=== PATIENT | female | born 1945 | race Caucasian/White ===

== ENCOUNTER 2024-05-18 20:11 | Inpatient (IN) | payer MEDICARE ==
[~2024-05-18] VITALS: Ht 160 cm; Wt 72.6 kg
[2024-05-18 20:30] VITALS: PULSE 92; RESP 20; TEMP 98.6
[2024-05-18 21:08] LABS: BASOPHILS # (AUTO) 0.1 (0.0-0.1); BASOPHILS % 0.9 % (0.0-1.0); EOSINOPHILS # (AUTO) 0.2 (0.0-0.4); HEMATOCRIT 37.9 % (34.2-44.1); LYMPHOCYTES # (AUTO) 1.1 (1.0-3.2); LYMPHOCYTES % 17.3 % (18.0-39.1); MEAN CORPUSCULAR HEMOGLOBIN 29.9 pg (28-32); MEAN CORPUSCULAR HGB CONC 31.7 g/dL (31-35); MEAN CORPUSCULAR VOLUME 94.3 fL (81-99); MONOCYTES # (AUTO) 0.5 (0.2-0.8); MONOCYTES % 7.8 % (4.4-11.3); NEUTROPHILS # (AUTO) 4.6 (2.1-6.9); NEUTROPHILS % 70.7 % (38.7-80.0); PLATELET COUNT 190 x10e3/uL (140-360); RED BLOOD COUNT 4.02 x10e6/uL (3.6-5.1); RED CELL DISTRIBUTION WIDTH 15.2 % (11.7-14.4); WHITE BLOOD COUNT 6.43 x10e3/uL (4.8-10.8)
[2024-05-18 21:28] LABS: ALBUMIN 2.9 g/dL (3.5-5.0); ALBUMIN/GLOBULIN RATIO 0.7 (0.8-2.0); CALCIUM 8.8 mg/dL (8.4-10.2); CREATININE, SERUM 2.16 mg/dL (0.57-1.11); TOTAL PROTEIN 7.1 g/dL (6.5-8.1)
[2024-05-18] MEDS: ONDANSETRON HCL INJ 2MG/ML 2ML 2 MG/ML VIAL IV PRN (22:50)
[2024-05-18] MEDS: Morphine 4mg INJECTION 4 MG/ML INJ IV PRN (22:51)
[2024-05-18 23:37] VITALS: BP 157/74; PULSE 88; RESP 22; TEMP 97.7; O2SAT 100
[2024-05-19] VITALS (9 sets, daily range): BP systolic 124–137; BP diastolic 74–88; PULSE 77–102; RESP 16–20; TEMP 97.4–98.6; O2SAT 95–100
[2024-05-19] MEDS ORDERED: ASPIRIN CHEW81 MG PO (00:14)
[2024-05-19] MEDS ORDERED: ALBUTEROL1.25 MG/3 NEB (00:14)
[2024-05-19] MEDS ORDERED: FUROSEMIDE40 MG PO (00:14)
[2024-05-19] MEDS ORDERED: ISOSORBIDE MONO30 MG PO (00:14)
[2024-05-19] MEDS ORDERED: ATORVASTATIN CA20 MG PO (00:14)
[2024-05-19 05:36] LABS: BASOPHILS # (AUTO) 0.1 (0.0-0.1); EOSINOPHILS # (AUTO) 0.2 (0.0-0.4); EOSINOPHILS % 2.1 % (0.0-6.0); HEMATOCRIT 39.9 % (34.2-44.1); HEMOGLOBIN 12.2 g/dL (12.0-16.0); LYMPHOCYTES # (AUTO) 1.5 (1.0-3.2); LYMPHOCYTES % 21.9 % (18.0-39.1); MEAN CORPUSCULAR HGB CONC 30.6 g/dL (31-35); MONOCYTES # (AUTO) 0.7 (0.2-0.8); MONOCYTES % 10.1 % (4.4-11.3); NEUTROPHILS # (AUTO) 4.5 (2.1-6.9); NEUTROPHILS % 64.6 % (38.7-80.0); PLATELET COUNT 167 x10e3/uL (140-360); RED BLOOD COUNT 4.07 x10e6/uL (3.6-5.1); RED CELL DISTRIBUTION WIDTH 15.4 % (11.7-14.4); WHITE BLOOD COUNT 7.03 x10e3/uL (4.8-10.8)
[2024-05-19 06:15] LABS: ALBUMIN 2.8 g/dL (3.5-5.0); ALBUMIN/GLOBULIN RATIO 0.7 (0.8-2.0); CALCIUM 8.7 mg/dL (8.4-10.2); CREATININE, SERUM 2.1 mg/dL (0.57-1.11); TOTAL PROTEIN 7.1 g/dL (6.5-8.1)
[2024-05-19] MEDS ORDERED: DEXTROSE 50% SYRINGE 50 ML IV PRN (09:00)
[2024-05-19] MEDS: ISOSORBIDE MONONITRATE 30 MG TAB CR PO SCH (10:18)
[2024-05-19] MEDS: FUROSEMIDE INJ 10 MG/ML 4 ML VIAL IV SCH (10:18)
[2024-05-19] MEDS: FLUCONAZOLE 100 MG TAB PO ONE (10:19)
[2024-05-19] MEDS: ATORVASTATIN 20 MG TAB PO SCH (10:20)
[2024-05-19] MEDS: POTASSIUM CHLORIDE 10MEQ EA PO SCH (10:20)
[2024-05-19] MEDS: ASPIRIN 81 MG CHEW TAB PO SCH (10:21)
[2024-05-19] MEDS: POTASSIUM CHLORIDE 10MEQ EA PO ONE (10:26)
[2024-05-19] MEDS: INSULIN LISPRO 100 UNIT/1 ML 3ML VIAL SQ SCH (11:32)
[2024-05-19] MEDS: NYSTATIN/TRIAMCINOLONE 30 GM CR TOP SCH (11:33)
[2024-05-20] VITALS (8 sets, daily range): BP systolic 122–136; BP diastolic 64–89; PULSE 76–101; RESP 18–20; TEMP 97.5–99.3; O2SAT 96–100
[2024-05-20] MEDS: ACETAMINOPHEN 325 MG TAB PO PRN (00:39)
[2024-05-20 05:40] LABS: BASOPHILS # (AUTO) 0.1 (0.0-0.1); BASOPHILS % 1.5 % (0.0-1.0); EOSINOPHILS # (AUTO) 0.2 (0.0-0.4); EOSINOPHILS % 3.1 % (0.0-6.0); HEMATOCRIT 39.9 % (34.2-44.1); HEMOGLOBIN 12.3 g/dL (12.0-16.0); LYMPHOCYTES # (AUTO) 1.1 (1.0-3.2); LYMPHOCYTES % 20.4 % (18.0-39.1); MEAN CORPUSCULAR HEMOGLOBIN 29.9 pg (28-32); MEAN CORPUSCULAR HGB CONC 30.8 g/dL (31-35); MEAN CORPUSCULAR VOLUME 96.8 fL (81-99); MONOCYTES # (AUTO) 0.5 (0.2-0.8); MONOCYTES % 9.1 % (4.4-11.3); NEUTROPHILS # (AUTO) 3.4 (2.1-6.9); NEUTROPHILS % 65.5 % (38.7-80.0); PLATELET COUNT 166 x10e3/uL (140-360); RED BLOOD COUNT 4.12 x10e6/uL (3.6-5.1); RED CELL DISTRIBUTION WIDTH 15.5 % (11.7-14.4); WHITE BLOOD COUNT 5.19 x10e3/uL (4.8-10.8)
[2024-05-20 06:15] LABS: CALCIUM 8.9 mg/dL (8.4-10.2); CREATININE, SERUM 2.1 mg/dL (0.57-1.11)
[2024-05-20 08:37] LABS: PHOSPHORUS 4.6 MG/DL (2.3-4.7)
[2024-05-20] MEDS: HYDROCODONE/APAP 10MG-325MG TAB PO PRN (09:00)
[2024-05-20] MEDS ORDERED: FLUCONAZOLE 100 MG TAB PO SCH (09:00)
[2024-05-20 09:24] LABS: THYROID STIMULATING HORMONE 1.871 uIU/mL (0.350-4.940)
[2024-05-20] MEDS ORDERED: ONDANSETRON HCL 4 MG ORAL DISINTEGRATING TAB PO PRN (13:30)
[2024-05-20 14:58] LABS: BILIRUBIN,URINE NEGATIVE (NEGATIVE); CLARITY,URINE HAZY (CLEAR); COLOR,URINE YELLOW (YELLOW); GLUCOSE, URINE NEGATIVE (NEGATIVE); KETONES,URINE NEGATIVE (NEGATIVE); LEUKOCYTE ESTERASE ,URINE MODERATE (NEGATIVE); NITRITE,URINE NEGATIVE (NEGATIVE); PH,URINE 5.5 (5 - 7); PROTEIN,URINE DIPSTICK 2+ (NEGATIVE); URINE UROBILINOGEN 0.2 mg/dL (0.2 - 1)
[2024-05-20 15:12] LABS: AMORPHOUS SEDIMENT,URINE MODERATE (FEW); BACTERIA,URINE MODERATE /HPF; RENAL EPITHELIAL CELLS,URINE MODERATE
[2024-05-20 16:11] LABS: CREATININE,URINE RANDOM 61.98 mg/dL (47-110)
[2024-05-20 16:14] LABS: TOTAL PROTEIN, URINE 205.5 mg/dL (1-14)
[2024-05-20] MEDS: DOXYCYCLINE HYCLATE TABLET 100 MG TAB PO SCH (17:56)
[2024-05-21 04:00] VITALS: BP 126/78; PULSE 101; RESP 18; TEMP 97.4; O2SAT 97
[2024-05-21 07:21] LABS: ANION GAP 20.3 mmol/L (8-16); CALCIUM 8.7 mg/dL (8.4-10.2); CREATININE, SERUM 2.25 mg/dL (0.57-1.11); POTASSIUM 4.3 mmol/L (3.5-5.1)
[2024-05-21 08:00] VITALS: BP 128/88; PULSE 103; RESP 22; TEMP 97.6; O2SAT 96
[2024-05-21 09:00] VITALS: BP 128/88; PULSE 103; RESP 22; TEMP 97.6; O2SAT 96
[2024-05-21] MEDS: SODIUM BICARBONATE 650 MG TAB PO SCH (09:01)
[2024-05-21] MEDS ORDERED: Vancomycin IV 1 GM VIAL ONE (11:52)
[2024-05-21] MEDS: Vancomycin IV 1 GM in SODIUM CHLORIDE 0.9% 250ML 250 ML IV ONE (11:52)
[2024-05-21 12:16] VITALS: BP 144/84; PULSE 84; RESP 22; O2SAT 97
[2024-05-21 16:00] VITALS: BP 133/76; PULSE 84; RESP 19; TEMP 97.6; O2SAT 98
[2024-05-21 20:00] VITALS: BP 142/81; PULSE 94; RESP 18; TEMP 97.5; O2SAT 98
[2024-05-21] MEDS: ALPRAZOLAM 0.25 MG TAB PO PRN (20:36)
[2024-05-22] VITALS (7 sets, daily range): BP systolic 124–143; BP diastolic 80–85; PULSE 79–85; RESP 18–20; TEMP 97.3–97.9; O2SAT 97–100
[2024-05-22 07:39] LABS: ANION GAP 20.3 mmol/L (8-16); CALCIUM 8.1 mg/dL (8.4-10.2); POTASSIUM 4.3 mmol/L (3.5-5.1)
[2024-05-22 08:07] LABS: CREATININE, SERUM 2.29 mg/dL (0.57-1.11)
[2024-05-22] MEDS: SODIUM CHLORIDE 0.9% 250ML 250 ML ONE (08:17)
[2024-05-22] MEDS: Vancomycin IV 1 GM in SODIUM CHLORIDE 0.9% 250ML 250 ML IV ONE (12:24)
[2024-05-22] MEDS: SODIUM BICARBONATE 650 MG TAB PO SCH (14:13)
[2024-05-23 04:00] VITALS: BP 130/99; PULSE 89; RESP 18; TEMP 97.7; O2SAT 100
[2024-05-23 06:12] LABS: CALCIUM 8.6 mg/dL (8.4-10.2); CREATININE, SERUM 2.11 mg/dL (0.57-1.11)
[2024-05-23 08:00] VITALS: BP 130/99; PULSE 89; RESP 18; TEMP 97.7; O2SAT 100
[2024-05-23 09:15] VITALS: BP 131/66; PULSE 86; RESP 19; TEMP 97.3; O2SAT 97
[2024-05-23 11:48] VITALS: BP 133/90; PULSE 88; RESP 19; TEMP 97.7; O2SAT 95
[2024-05-23 17:11] VITALS: BP 127/76; PULSE 78; RESP 19; TEMP 97; O2SAT 97
[2024-05-23 20:00] VITALS: BP 134/75; PULSE 90; RESP 20; TEMP 97.8; O2SAT 98
[2024-05-24] VITALS: BP 127/72; PULSE 92; RESP 18; TEMP 98.4; O2SAT 98
[2024-05-24 04:00] VITALS: BP 117/74; PULSE 89; RESP 18; TEMP 98; O2SAT 97
[2024-05-24 05:31] LABS: ANION GAP 16.3 mmol/L (8-16); CALCIUM 8.5 mg/dL (8.4-10.2); CREATININE, SERUM 2.17 mg/dL (0.57-1.11); POTASSIUM 4.3 mmol/L (3.5-5.1)
[2024-05-24 08:00] VITALS: BP 136/73; PULSE 93; RESP 21; TEMP 97.9; O2SAT 98
[2024-05-24 08:20] VITALS: BP 136/73; PULSE 93; RESP 21; TEMP 97.9; O2SAT 98
[2024-05-24] MEDS ORDERED: NYSTATIN-TRIAMC15 GM TOP (10:11)
[2024-05-24] MEDS ORDERED: SODIUM BICARBO650 MG PO (10:11)
[2024-05-24] MEDS ORDERED: DOXYCYCLINE HY100 MG PO (10:13)
[2024-05-24 10:42] VITALS: BP 136/73; PULSE 93; RESP 21; TEMP 97.9; O2SAT 98
[2024-05-24 12:08] VITALS: BP 140/71; PULSE 92; RESP 20; TEMP 97.5; O2SAT 99
== END 2024-05-24 13:21 | disposition home or self-care (01) | DRG 637 ==
LOC: ER 20:28 → ERHOLD 22:08 → MED/SURG2 05-19 00:01
PROVIDERS: ADMIT Internal Medicine; ATTEND Internal Medicine
DX: E11.621 Type 2 diabetes mellitus with foot ulcer (principal); I50.23 Acute on chronic systolic (congestive) heart failure; I13.0 Hypertensive heart and chronic kidney disease with heart failure and stage 1 through stage 4 chronic kidney disease, or unspecified chronic kidney disease; E11.42 Type 2 diabetes mellitus with diabetic polyneuropathy; E11.22 Type 2 diabetes mellitus with diabetic chronic kidney disease; N18.4 Chronic kidney disease, stage 4 (severe); B95.62 Methicillin resistant Staphylococcus aureus infection as the cause of diseases classified elsewhere; E11.51 Type 2 diabetes mellitus with diabetic peripheral angiopathy without gangrene; B37.2 Candidiasis of skin and nail; Z66 Do not resuscitate; E78.5 Hyperlipidemia, unspecified; I25.10 Atherosclerotic heart disease of native coronary artery without angina pectoris; I83.93 Asymptomatic varicose veins of bilateral lower extremities; Z11.52 Encounter for screening for COVID-19; Z79.82 Long term (current) use of aspirin; Z79.4 Long term (current) use of insulin
CPT/HCPCS: 36415; 71045; 76770; 80048; 80053; 80061; 80202; 81001; 82570; 82746; 82948; 83036; 83735; 83880; 84100; 84156; 84443; 85025; 87071; 87186; 87205; 93926; 96372; 99252; 99284; J0696; J1940; J2270; J2405; J2543; J7050; U0002

== ENCOUNTER 2024-05-25 21:15 | Inpatient (IN) | payer MEDICARE ==
[~2024-05-25] VITALS: Ht 160 cm; Wt 72.6 kg
[~2024-05-25 21:15] MED LIST: ALBUTEROL1.25 MG/3 NEB; ASPIRIN CHEW81 MG PO; ATORVASTATIN CA20 MG PO; DOXYCYCLINE HY100 MG PO; FUROSEMIDE40 MG PO; ISOSORBIDE MONO30 MG PO; NYSTATIN-TRIAMC15 GM TOP; SODIUM BICARBO650 MG PO
[2024-05-25 21:35] VITALS: TEMP 97.8
[2024-05-25 22:24] LABS: BASOPHILS # (AUTO) 0.1 (0.0-0.1); BASOPHILS % 1.2 % (0.0-1.0); EOSINOPHILS # (AUTO) 0.1 (0.0-0.4); EOSINOPHILS % 1.4 % (0.0-6.0); HEMATOCRIT 38.7 % (34.2-44.1); HEMOGLOBIN 12.1 g/dL (12.0-16.0); LYMPHOCYTES # (AUTO) 1.3 (1.0-3.2); LYMPHOCYTES % 20.2 % (18.0-39.1); MEAN CORPUSCULAR HEMOGLOBIN 29.6 pg (28-32); MEAN CORPUSCULAR HGB CONC 31.3 g/dL (31-35); MEAN CORPUSCULAR VOLUME 94.6 fL (81-99); MONOCYTES # (AUTO) 0.5 (0.2-0.8); MONOCYTES % 7.2 % (4.4-11.3); NEUTROPHILS # (AUTO) 4.6 (2.1-6.9); NEUTROPHILS % 69.8 % (38.7-80.0); PLATELET COUNT 183 x10e3/uL (140-360); RED BLOOD COUNT 4.09 x10e6/uL (3.6-5.1); RED CELL DISTRIBUTION WIDTH 16.4 % (11.7-14.4); WHITE BLOOD COUNT 6.54 x10e3/uL (4.8-10.8)
[2024-05-25 22:44] LABS: ALBUMIN 2.7 g/dL (3.5-5.0); ALBUMIN/GLOBULIN RATIO 0.6 (0.8-2.0); ANION GAP 18.5 mmol/L (8-16); BILIRUBIN,TOTAL 0.7 mg/dL (0.2-1.2); CALCIUM 8.6 mg/dL (8.4-10.2); CREATININE, SERUM 2.22 mg/dL (0.57-1.11); POTASSIUM 4.5 mmol/L (3.5-5.1); TOTAL PROTEIN 7.1 g/dL (6.5-8.1)
[2024-05-25] MEDS: METHYLPREDNISOLONE SOD SUCC 125 MG/2ML VIAL IV ONE (23:10)
[2024-05-25] MEDS: FAMOTIDINE 20 MG/2 ML VIAL IV STA (23:11)
[2024-05-25] MEDS: DIPHENHYDRAMINE HCL INJ 50 MG/ML VIAL IV ONE (23:11)
[2024-05-26] VITALS (9 sets, daily range): BP systolic 123–132; BP diastolic 75–97; PULSE 84–101; RESP 18–24; TEMP 97.5–98; O2SAT 95–99
[2024-05-26] MEDS ORDERED: DEXTROSE 50% SYRINGE 50 ML IV PRN (00:45)
[2024-05-26] MEDS: FUROSEMIDE INJ 10 MG/ML 4 ML VIAL IV ONE (01:01)
[2024-05-26] MEDS: LORAZEPAM INJ 2 MG/ML VIAL IV ONE ×2 (02:07→02:37)
[2024-05-26] MEDS ORDERED: LORAZEPAM INJ 2 MG/ML VIAL ONE (02:08)
[2024-05-26] MEDS: FUROSEMIDE INJ 10 MG/ML 4 ML VIAL IV SCH (05:31)
[2024-05-26] MEDS: METHYLPREDNISOLONE SOD SUCC 40 MG/ML VIAL 1ML IV SCH ×2 (05:31→13:15)
[2024-05-26 05:59] LABS: TROPONIN I 0.024 ng/mL (0-0.300)
[2024-05-26] MEDS: INSULIN REGULAR, HUMAN 100 UNIT/1 ML SQ SCH (08:02)
[2024-05-26] MEDS ORDERED: ONDANSETRON HCL INJ 2MG/ML 2ML 2 MG/ML VIAL IV PRN (08:45)
[2024-05-26] MEDS ORDERED: ACETAMINOPHEN 325 MG TAB PO PRN (08:45)
[2024-05-26] MEDS ORDERED: FAMOTIDINE 20 MG/2 ML VIAL IV ONE (09:47)
[2024-05-26] MEDS ORDERED: PIPERACILLIN/TAZOBACTAM SOD 2.25 GM VIAL ONE (09:47)
[2024-05-26] MEDS ORDERED: SODIUM BICARBONATE 650 MG TAB ONE (09:49)
[2024-05-26] MEDS: NYSTATIN/TRIAMCINOLONE 30 GM CR TOP SCH (09:54)
[2024-05-26] MEDS: ISOSORBIDE MONONITRATE 30 MG TAB CR PO SCH (09:54)
[2024-05-26] MEDS: FAMOTIDINE 20 MG/2 ML VIAL IV SCH (09:55)
[2024-05-26] MEDS: SODIUM BICARBONATE 650 MG TAB PO SCH (09:56)
[2024-05-26 14:24] LABS: TROPONIN I 0.019 ng/mL (0-0.300)
[2024-05-26] MEDS: HEPARIN SOD (PORCINE) 5,000 UNIT/ML VIAL SC SCH (21:46)
[2024-05-26] MEDS: DIPHENHYDRAMINE HCL INJ 50 MG/ML VIAL IV PRN (23:33)
[2024-05-27] VITALS (7 sets, daily range): BP systolic 109–139; BP diastolic 67–84; PULSE 82–86; RESP 18–20; TEMP 97.5–99.5; O2SAT 95–98
[2024-05-27 06:30] LABS: HEMATOCRIT 39.7 % (34.2-44.1); HEMOGLOBIN 12.4 g/dL (12.0-16.0); LYMPHOCYTES # (AUTO) 0.3 (1.0-3.2); LYMPHOCYTES % 3.4 % (18.0-39.1); MEAN CORPUSCULAR HEMOGLOBIN 29.6 pg (28-32); MEAN CORPUSCULAR HGB CONC 31.2 g/dL (31-35); MEAN CORPUSCULAR VOLUME 94.7 fL (81-99); MONOCYTES # (AUTO) 0.2 (0.2-0.8); MONOCYTES % 2.1 % (4.4-11.3); NEUTROPHILS % 94.3 % (38.7-80.0); PLATELET COUNT 176 x10e3/uL (140-360); RED BLOOD COUNT 4.19 x10e6/uL (3.6-5.1); RED CELL DISTRIBUTION WIDTH 16.6 % (11.7-14.4); WHITE BLOOD COUNT 8.52 x10e3/uL (4.8-10.8)
[2024-05-27 06:45] LABS: ALBUMIN 2.7 g/dL (3.5-5.0); ALBUMIN/GLOBULIN RATIO 0.6 (0.8-2.0); ANION GAP 19.8 mmol/L (8-16); BILIRUBIN,TOTAL 0.9 mg/dL (0.2-1.2); CALCIUM 8.7 mg/dL (8.4-10.2); CREATININE, SERUM 2.24 mg/dL (0.57-1.11); POTASSIUM 3.8 mmol/L (3.5-5.1); TOTAL PROTEIN 7.1 g/dL (6.5-8.1)
[2024-05-27 07:31] LABS: TROPONIN I 0.032 ng/mL (0-0.300)
[2024-05-27] MEDS ORDERED: DEXTROSE 50% SYRINGE 50 ML IV PRN (09:30)
[2024-05-27] MEDS: INSULIN LISPRO 100 UNIT/1 ML 3ML VIAL SQ SCH (11:30)
[2024-05-27] MEDS ORDERED: NYSTATIN 15 GM POWDER UD BTL TOP SCH (17:00)
[2024-05-27] MEDS: SACUBITRIL/VALSARTAN 24MG/26MG 1 EA TAB PO SCH (17:36)
[2024-05-27] MEDS: CARVEDILOL 3.125 MG TAB PO SCH (17:37)
[2024-05-27] MEDS: METHYLPREDNISOLONE SOD SUCC 40 MG/ML VIAL 1ML IV SCH (23:48)
[2024-05-28] VITALS (10 sets, daily range): BP systolic 113–136; BP diastolic 67–78; PULSE 69–84; RESP 16–20; TEMP 97.6–98.9; O2SAT 95–100
[2024-05-28] MEDS: FAMOTIDINE 20 MG TAB PO SCH (11:08)
[2024-05-28] MEDS: BALSAM PERU/CASTOR OIL 60 GM OINT...G. TP SCH (11:52)
[2024-05-29] VITALS (8 sets, daily range): BP systolic 124–140; BP diastolic 72–101; PULSE 72–82; RESP 18–20; TEMP 97.6–99.1; O2SAT 96–100
[2024-05-29 06:21] LABS: ANION GAP 20.3 mmol/L (8-16); CALCIUM 8.1 mg/dL (8.4-10.2); CREATININE, SERUM 2.63 mg/dL (0.57-1.11)
[2024-05-29 06:24] LABS: POTASSIUM 3.3 mmol/L (3.5-5.1)
[2024-05-29] MEDS ORDERED: POTASSIUM CHLORIDE 20 MEQ TAB CR PO ONE (16:30)
[2024-05-29] MEDS: PREDNISONE 10 MG TAB PO SCH (17:52)
[2024-05-30] VITALS: BP 126/86; PULSE 70; RESP 18; TEMP 98.3; O2SAT 98
[2024-05-30 04:00] VITALS: BP 129/62; PULSE 82; RESP 18; TEMP 98.2; O2SAT 99
[2024-05-30 08:35] VITALS: PULSE 81; RESP 18; O2SAT 96
[2024-05-30 10:46] VITALS: BP 116/80; PULSE 79; RESP 16; TEMP 98.3; O2SAT 99
[2024-05-30 10:56] VITALS: BP 116/80; PULSE 79
[2024-05-30] MEDS: INSULIN GLARGINE 100 UNITS/ML VIAL SQ ONE (11:03)
[2024-05-30] MEDS: FUROSEMIDE INJ 10 MG/ML 4 ML VIAL IV SCH (11:06)
[2024-05-30] MEDS ORDERED: KEFLEX125 MG/5 M PO (14:20)
[2024-05-30] MEDS ORDERED: DIFLUCAN100 MG PO (14:22)
[2024-05-30] MEDS ORDERED: COREG6.25 MG PO (14:23)
[2024-05-30] MEDS ORDERED: ONDANSETRON ODT4 MG PO (14:25)
[2024-05-30] MEDS ORDERED: GLIPIZIDE5 MG PO (14:26)
[2024-05-30] MEDS ORDERED: LYRICA25 MG PO (14:27)
[2024-05-30] MEDS ORDERED: INSULIN GLARGINE 100 UNITS/ML VIAL SQ SCH (21:00)
== END 2024-05-30 17:23 | disposition hospice, home (50) | DRG 299 ==
LOC: ER 21:38 → ERHOLD 05-26 00:35 → MED/SURG2 05-26 14:05
PROVIDERS: ADMIT Internal Medicine; ATTEND Internal Medicine
DX: E11.52 Type 2 diabetes mellitus with diabetic peripheral angiopathy with gangrene (principal); G92.8 Other toxic encephalopathy; I50.23 Acute on chronic systolic (congestive) heart failure; I13.0 Hypertensive heart and chronic kidney disease with heart failure and stage 1 through stage 4 chronic kidney disease, or unspecified chronic kidney disease; I70.263 Atherosclerosis of native arteries of extremities with gangrene, bilateral legs; L03.115 Cellulitis of right lower limb; L03.116 Cellulitis of left lower limb; L97.411 Non-pressure chronic ulcer of right heel and midfoot limited to breakdown of skin; N18.4 Chronic kidney disease, stage 4 (severe); E87.20 Acidosis, unspecified; E11.621 Type 2 diabetes mellitus with foot ulcer; E11.22 Type 2 diabetes mellitus with diabetic chronic kidney disease; D63.1 Anemia in chronic kidney disease; E11.65 Type 2 diabetes mellitus with hyperglycemia; L27.0 Generalized skin eruption due to drugs and medicaments taken internally; R53.81 Other malaise; E87.6 Hypokalemia; Z66 Do not resuscitate; Z11.52 Encounter for screening for COVID-19; R06.02 Shortness of breath; K21.9 Gastro-esophageal reflux disease without esophagitis; T36.4X5A Adverse effect of tetracyclines, initial encounter; Z79.82 Long term (current) use of aspirin; R26.2 Difficulty in walking, not elsewhere classified; I25.2 Old myocardial infarction; Z95.1 Presence of aortocoronary bypass graft; Z88.1 Allergy status to other antibiotic agents; E66.9 Obesity, unspecified; Z68.28 Body mass index [BMI] 28.0-28.9, adult
CPT/HCPCS: 36415; 70450; 71045; 71250; 74176; 80048; 80053; 82550; 82948; 83036; 83880; 84484; 85025; 86039; 86140; 93005; 93306; 94799; 96372; 99252; 99284; J0696; J1200; J1644; J1815; J1940; J2060; J2543; J2919; J7512; U0002